=== PATIENT | male | born 1955 | race American Indian/Alaskan Native ===

== ENCOUNTER 2020-02-13 07:32 | Day surgery (SDC) | payer MEDICARE ==
[~2020-02-13 07:32] MED LIST: BUPIVACAINE/PF (0.5%) 5 MG/1 ML 30 ML VIAL INFILTRATI ONE; HEPARIN 10,000 UNITS/10 ML VIAL ONE; LIDOCAINE (1%) 10 MG/1 ML VIAL 20 ML MDV ONE; SODIUM CHLORIDE 0.9% 250ML 0 ML ONE; SODIUM CHLORIDE P/F VIAL 10 ML 0 ML ONE; rifAMPin 600 MG VIAL ONE
[2020-02-13] MEDS ORDERED: ceFAZolin/STERILE WATER 2 GM/20 ML SYRINGE IV NR (08:43)
[2020-02-13 08:45] LABS: Hematocrit 34.7 % (35.5-45.6); Hemoglobin 11.5 gm/dl (11.8-15.2); Mean Corpuscular HGB Conc 33 % (32-34); Mean Corpuscular Volume 83 fl (84-94); Platelet Count 204 K/mm3 (140-440); Red Blood Count 4.17 M/mm3 (3.65-5.03); Red Cell Distribution Width 15.6 % (13.2-15.2)
[2020-02-13] MEDS ORDERED: SODIUM CHLORIDE 0.9% 1000 ML 1,000 ML IV SCH (08:50)
--- NOTE | 2020-02-13 08:56 | Anesthesia Day of Surgery ---
Anesthesia Day of Surgery - Day of Surgery Patient Examined: Yes Patient H&P Reviewed: Yes Patient is NPO: Yes
--- NOTE | 2020-02-13 08:57 | Anesthesia Consultation ---
Anesthesia Consult and Med Hx Date of service: 02/13/20 - Airway Anesthetic Teeth Evaluation: Good ROM Head & Neck: Adequate Mental/Hyoid Distance: Adequate Mallampati Class: Class I Intubation Access Assessment: Good - Pre-Operative Health Status ASA Pre-Surgery Classification: ASA3 Proposed Anesthetic Plan: General (Pt request) - Pulmonary Hx Smoking: Yes Hx Respiratory Symptoms: No (+2FS) Hx Sleep Apnea: (LOW RISK) - Central Nervous System Hx Back Pain: Yes (CHRONIC) Hx Psychiatric Problems: No - Endocrine Hx Renal Disease: Yes Hx End Stage Renal Disease: Yes (Last HD yesterday) Hx Non-Insulin Dependent Diabetes: Yes (No meds?) - Hematic Hx Anemia: Yes - Other Systems Hx Cancer: Yes
[2020-02-13 08:58] LABS: Calcium 8.8 mg/dL (8.4-10.2)
[2020-02-13] MEDS ORDERED: HYDROmorphone 1 MG/1 ML INJ IV PRN (09:00)
[2020-02-13] MEDS ORDERED: ONDANSETRON 4 MG/2 ML INJ IV PRN (09:00)
[2020-02-13] MEDS ORDERED: SODIUM CHLORIDE 0.9% 1000 ML 1,000 ML ONE (09:14)
[2020-02-13] MEDS ORDERED: ONDANSETRON 4 MG/2 ML INJ ONE (11:59)
[2020-02-13] MEDS ORDERED: LIDOCAINE MPF (2%) 20 MG/1 ML VIAL 5 ML ONE (11:59)
[2020-02-13] MEDS ORDERED: HYDROmorphone 1 MG/1 ML INJ ONE (11:59)
[2020-02-13] MEDS ORDERED: propofoL 200 MG/20 ML VIAL IV ONE ×2 (12:00→12:55)
[2020-02-13] MEDS ORDERED: HEPARIN 10,000 UNITS/10 ML VIAL IV ONE (13:29)
[2020-02-13] MEDS ORDERED: SODIUM CHLORIDE 0.9% 500 ML IVPB IV ONE (13:29)
[2020-02-13] MEDS ORDERED: BUPIVACAINE/PF (0.5%) 5 MG/1 ML 30 ML VIAL INFILTRATI ONE ×2 (13:31)
--- NOTE | 2020-02-13 14:23 | Short Stay Summary ---
Short Stay Documentation Date of service: 02/13/20 Narrative H&P: See H&P - History H&P: obtained from office - Allergies and Medications Current Medications: Allergies No Known Allergies Allergy (Unverified 02/11/20 12:27) Home Medications Medication Instructions Recorded Confirmed Last Taken Type Omeprazole 40 mg PO DAILY 01/30/20 02/13/20 02/12/20 08:00 History Percocet 10/325 mg 1 tab PO PRN PRN 01/30/20 02/11/20 Unknown History Active Medications Cefazolin Sodium (Ancef/Sterile Water 2 Gm/20 Ml) 2 gm IV PREOP NR Stop: 02/13/20 23:00 Hydromorphone HCl (Dilaudid) 0.25 mg IV Q10MIN PRN PRN Reason: Pain, Moderate (4-6) Stop: 02/13/20 16:00 Hydromorphone HCl (Dilaudid) 0.5 mg IV Q10MIN PRN PRN Reason: Pain , Severe (7-10) Stop: 02/13/20 16:00 Sodium Chloride (Nacl 0.9% 1000 Ml) 1,000 mls @ 42 mls/hr IV DIRECT CASIMIRO Last Admin: 02/13/20 09:20 Dose: 42 mls/hr Documented by: Ondansetron HCl (Zofran) 4 mg IV ONCE PRN PRN Reason: Nausea And Vomiting Stop: 02/13/20 16:00 - Brief post op/procedure progress note Date of procedure: 02/13/20 Pre-op diagnosis: End-Stage Renal Disease Post-op diagnosis: same Procedure: Creation of Left Brachiocephalic Arteriovenous Fistula Anesthesia: GETA Surgeon: CHRISTOPHER LEDEZMA Estimated blood loss: minimal Pathology: none Condition: stable - Disposition Condition at discharge: Good Disposition: DC-01 TO HOME OR SELFCARE Short Stay Discharge Plan Activity: other (No heavy lifting with left arm for 2 weeks.) Wound: open to air, keep clean and dry, other (Okay to wash the wound with soap and water but do not soak in water for 2 weeks.) Follow up with: CHRISTOPHER LEDEZMA MD [Staff Physician] - 14 Days Prescriptions: HYDROcodone/APAP 7.5-325 [[place] 7.5/325] 1 each PO Q6HR PRN #30 tablet PRN Reason: Pain
--- NOTE | 2020-02-13 14:25 | Operative Report ---
Operative Report Operative Report: Date of procedure: 02/13/2020 Pre-operative diagnosis: End-Stage Renal Disease Post-operative diagnosis: End-Stage Renal Disease Procedure(s): Creation of Left Brachial Artery to Cephalic Vein Arteriovenous Fistula Surgeon: Jareth Jain MD Laborer Stores: None Anesthesia: General Endotracheal Anesthesia EBL: Minimal Counts: Correct Complications: None Condition: Stable Findings: Successful creation of left brachiocephalic arteriovenous fistula with palpable thrill and palpable radial pulse at the completion of the case. Specimen: None Indications: The patient is a 64-year-old male with a history of end-stage renal disease who is currently on hemodialysis through a right internal jugular permacath. He is in need of long-term dialysis access and was found to be a suitable candidate for creation of an arteriovenous fistula. He was given the risk, benefits, and alternative procedures and consented to the procedure. Description of Procedure: The patient was brought to the operating room and laid in supine position. After general endotracheal anesthesia was achieved the patient's arm was prepped and draped in normal sterile fashion. A transverse incision was then made and carried down to the cephalic vein using sharp dissection. The vein was dissecte d out both proximally and distally and suture ligated and divided distally. I then ran a 3 Sandeep proximally in the vein, to ensure patency of the vein. Then flushed the vein with heparinized saline and flow was controlled with a bulldog clamp. I then dissected out the brachial artery through this incision circumferentially both proximal and distal and controlled the artery with vessel loops. I systemically heparinized the patient with 3000 units of heparin IV and used angled DeBakey clamps to control flow through the artery. I created an arteriotomy using an 11 blade and Barnett scissors. I created an end to side anastomosis between the cephalic vein and brachial artery using a 6-0 Prolene in running fashion. Prior to completing the anastomosis I flushed the artery both proximally and distally and then advanced a 3 Sandeep proximally to break the spasm in the artery. I then completed the anastomosis and removed all clamps allowing flow into the fistula which had an adequate thrill. I achieved hemostasis with a combination of Quick Clot and electrocautery. Once hemostasis had been achieved I closed the wound in 2 layers using a 3-0 Vicryl in a running fashion in the deep dermal layer and a 4-0 Monocryl in running fashion in the subcuticular layer. I then dressed the wound with Dermabond. The patient tolerated the procedure well. All sponge, needle, and instrument counts were correct. The patient was taken to the recovery area in stable condition.
[2020-02-13] MEDS: HYDROmorphone 1 MG/1 ML INJ IV PRN ×2 (14:42→15:03)
--- NOTE | 2020-02-13 14:50 | Post Anesthesia Evaluation ---
- Post Anesthesia Evaluation Patient Participated: Yes Airway Patent: Yes Stable Respiratory Function: Yes Nausea/Vomiting: No Temp > 96.8F: Yes Pain Manageable: Yes Adequeate Hydration: Yes Anesthesia Complications: No Block Receding Appropriately: Not Applicable Patient on Ventilator: No
[2020-02-13] MEDS ORDERED: HYDROcodone/ACETAMINOPHEN 7.5-325MG TAB PO NR (15:22)
[2020-02-13 15:43] VITALS: BP 145/96
== END 2020-02-13 17:00 | disposition home or self-care (01) ==
LOC: OR 07:32
PROVIDERS: ATTEND Surgery Vascular Surgery
DX: I12.0 Hypertensive chronic kidney disease with stage 5 chronic kidney disease or end stage renal disease (principal); E11.22 Type 2 diabetes mellitus with diabetic chronic kidney disease; N18.6 End stage renal disease; K21.9 Gastro-esophageal reflux disease without esophagitis; Z85.46 Personal history of malignant neoplasm of prostate; Z98.890 Other specified postprocedural states; Z79.899 Other long term (current) drug therapy; Z87.891 Personal history of nicotine dependence; Z86.2 Personal history of diseases of the blood and blood-forming organs and certain disorders involving the immune mechanism
CPT/HCPCS: 36415; 36821; 80048; 85027; J0690; J1170; J1644; J2405; J2704; J7030; J7040; J3490; J7050

== ENCOUNTER 2021-01-16 06:12 | Day surgery (SDC) | payer MEDICARE ==
[~2021-01-16 06:12] MED LIST changes: -BUPIVACAINE/PF (0.5%) 5 MG/1 ML 30 ML VIAL INFILTRATI ONE; -HEPARIN 10,000 UNITS/10 ML VIAL ONE; -LIDOCAINE (1%) 10 MG/1 ML VIAL 20 ML MDV ONE; -SODIUM CHLORIDE 0.9% 250ML 0 ML ONE; -SODIUM CHLORIDE P/F VIAL 10 ML 0 ML ONE; +ceFAZolin/STERILE WATER 2 GM/20 ML SYRINGE IV NR; -rifAMPin 600 MG VIAL ONE
[2021-01-16] MEDS ORDERED: SODIUM CHLORIDE 0.9% 1000 ML 1,000 ML ONE (06:14)
[2021-01-16] MEDS ORDERED: BACTERIOSTATIC SODIUM CHLORIDE 0.9% 30 ML VIAL INFILTRATI ONE (06:14)
[2021-01-16] MEDS ORDERED: SODIUM CHLORIDE 0.9% 1000 ML 1,000 ML IV SCH (06:30)
[2021-01-16 07:14] LABS: Hematocrit 34.4 % (35.5-45.6); Hemoglobin 11.5 gm/dl (11.8-15.2); Mean Corpuscular HGB Conc 33 % (32-34); Mean Corpuscular Volume 82 fl (84-94); Platelet Count 172 K/mm3 (140-440); Red Cell Distribution Width 16.3 % (13.2-15.2)
[2021-01-16 07:28] LABS: Calcium 9.3 mg/dL (8.4-10.2)
[2021-01-16] MEDS ORDERED: HEPARIN 10,000 UNITS/10 ML VIAL ONE (07:31)
[2021-01-16] MEDS ORDERED: SODIUM CHLORIDE 0.9% 250ML 250 ML ONE (07:32)
[2021-01-16] MEDS ORDERED: SODIUM CHLORIDE 0.9% 500 ML 500 ML ONE (07:32)
[2021-01-16] MEDS ORDERED: rifAMPin 600 MG VIAL ONE (07:33)
[2021-01-16] MEDS ORDERED: BUPIVACAINE/PF (0.5%) 5 MG/1 ML 30 ML VIAL INFILTRATI ONE ×2 (07:33→07:55)
[2021-01-16] MEDS ORDERED: fentaNYL 100 MCG/2 ML INJ ONE (07:54)
[2021-01-16] MEDS ORDERED: MIDAZOLAM 2 MG/2 ML INJ ONE (07:54)
[2021-01-16] MEDS ORDERED: propofoL 200 MG/20 ML VIAL IV ONE ×2 (07:55→09:43)
[2021-01-16] MEDS ORDERED: LIDOCAINE MPF (2%) 20 MG/1 ML VIAL 5 ML ONE (07:55)
[2021-01-16] MEDS ORDERED: HYDROmorphone 1 MG/1 ML INJ IV PRN ×2 (08:08)
[2021-01-16] MEDS ORDERED: ONDANSETRON 4 MG/2 ML INJ IV PRN (08:08)
--- NOTE | 2021-01-16 08:09 | Anesthesia Day of Surgery ---
Anesthesia Day of Surgery - Day of Surgery Patient Examined: Yes Patient H&P Reviewed: Yes Patient is NPO: Yes
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
[2021-01-16] MEDS ORDERED: HEPARIN 10,000 UNITS/10 ML VIAL IR ONE (09:17)
[2021-01-16] MEDS ORDERED: SODIUM CHLORIDE 0.9% 500 ML IVPB IRRIGATION ONE (09:19)
[2021-01-16] MEDS ORDERED: SODIUM CHLORIDE 0.9% 250 ML IVPB IR ONE (09:20)
[2021-01-16] MEDS ORDERED: rifAMPin 600 MG VIAL IV ONE (09:21)
[2021-01-16] MEDS ORDERED: SODIUM CHLORIDE 0.9% IRR 1,500 ML BOTTLE IR ONE (09:22)
--- NOTE | 2021-01-16 10:57 | Short Stay Summary ---
Short Stay Documentation Date of service: 01/16/21 Narrative H&P: See H&P - History H&P: obtained from office - Allergies and Medications Current Medications: Allergies No Known Allergies Allergy (Verified 01/14/21 11:34) Home Medications Medication Instructions Recorded Confirmed Last Taken Type Percocet 10/325 mg 1 tab PO Q6HR PRN 01/30/20 01/14/21 01/15/21 History Calcium Acetate 667 mg PO TIDWM 01/14/21 01/14/21 01/15/21 History amLODIPine [Norvasc] 10 mg PO DAILY 01/14/21 01/16/21 01/16/21 05:00 History hydrALAZINE [Apresoline] 25 mg PO BID 01/14/21 01/14/21 01/15/21 History Active Medications Cefazolin Sodium (Cefazolin/Sterile Water 2 Gm/20 Ml Syringe) 2 gm IV PREOP NR Stop: 01/16/21 23:59 Hydromorphone HCl (Hydromorphone 1 Mg/1 Ml Inj) 0.25 mg IV Q10MIN PRN PRN Reason: Pain, Moderate (4-6) Stop: 01/16/21 20:00 Hydromorphone HCl (Hydromorphone 1 Mg/1 Ml Inj) 0.5 mg IV Q10MIN PRN PRN Reason: Pain , Severe (7-10) Stop: 01/16/21 20:00 Sodium Chloride (Nacl 0.9% 1000 Ml) 1,000 mls @ 42 mls/hr IV DIRECT CASIMIRO Ondansetron HCl (Ondansetron 4 Mg/2 Ml Inj) 4 mg IV ONCE PRN PRN Reason: Nausea And Vomiting Stop: 01/16/21 13:00 - Brief post op/procedure progress note Date of procedure: 01/16/21 Pre-op diagnosis: Complications of Dialysis Access Post-op diagnosis: same Procedure: 1. Excision of Left Arm Arteriovenous Fistula Pseudoaneurysm With Attempted Thrombectomy of Left Arm AV Fistula 2. Creation of Left Brachial Artery to Left Axillary Vein Arteriovenous Graft with 7 mm Bovine Artegraft Anesthesia: MAC, regional Surgeon: CHRISTOPHER LEDEZMA Estimated blood loss: minimal Pathology: none Condition: stable - Disposition Condition at discharge: Good Disposition: 01 HOME / SELF CARE / HOMELESS Short Stay Discharge Plan Activity: other (No Heavy Lifting with Left Arm) Wound: open to air, keep clean and dry, other (Okay to wash the left arm wounds with soap and water but do not soak in water for 2 weeks.) Follow up with: CHRISTOPHER LEDEZMA MD [Staff Physician] - 14 Days Prescriptions: HYDROcodone/APAP 5-325 [[place] 5/325] 1 each PO Q4HR PRN #30 tablet PRN Reason: Pain
--- NOTE | 2021-01-16 11:03 | Operative Report ---
Operative Report Operative Report: Date of procedure: 01/16/2021 Pre-operative diagnosis: Complications of Dialysis Access Post-operative diagnosis: Same Procedure(s): 1. Excision of Left Arm Arteriovenous Fistula Pseudoaneurysm With Attempted Open thrombectomy of Left Arm Arteriovenous fistula with 4 Sandeep 2. Creation of Left Brachial Artery to Axillary Vein AV Graft with 7 mm Bovine Graft Artergraft Surgeon: Jareth Jain MD Sales Representative Sales Manager: None Anesthesia: Regional/MAC EBL: Minimal Counts: Correct Complications: None Condition: Stable Findings: Successful Creation of Left Arm AV Graft with Palpable Thrill and Palpable Radial Pulse at the Completion of the Case. Specimen: None Indication: The patient is a 65-year-old male with a history of end-stage renal disease who was previously on hemodialysis through a left brachiocephalic arteriovenous fistula. His fistula thrombosed and he had a permacath placed. He presents for revision of the fistula possible creation of an arteriovenous graft. He has been given the risk, benefits, and alternative procedures and consented to the procedure. Description of Procedure: Prior to being transported to the operating room the patient had a regional block of the left arm performed. After the block was performed the patient was transported to the operating room and adequately sedated. The patient's left arm was then prepped and draped in normal sterile fashion. A curvilinear incision was created over a pseudoaneurysm near the arterial anastomosis of the fistula. Sharp dissection was used to carry the incision down to the fistula and the arterial inflow of the fistula was dissected circumferentially using sharp dissection. An 11 blade and Barnett scissors were used to create a venotomy and a 4 Sandeep was passed into the arterial inflow of the fistula. Several passes were made and despite retrieving thrombus the arterial flow was sluggish suggesting there was likely a stenosis, of the arterial anastomosis, so the decision was made to abandon the fistula and create an arteriovenous graft. The pseudoaneurysmal portion of the fistula was transected after ligating both the venous outflow and arterial inflow of the graft using 2-0 silk ties. This was then passed off as a specimen. A longitudinal incision was made on the medial aspect of the arm just proximal to the antecubital crease and carried down to the brachial artery using sharp dissection. The brachial artery was dissected out circumferentially both proximally and distally and controlled with vessel loops. A second incision was created in longitudinal fashion on the medial aspect of the arm just distal to the axillary crease and carried down to the axillary vein using sharp dissection. Axillary vein was dissected out circumferentially and controlled with a vessel loop. I then used a Holly-Wick tunneler to tunnel from the brachial artery incision to the axillary vein incision and then pulled an 7 mm bovine through the tunnel. I infused with heparinized saline to ensure that it was not twisted or kinked. I put the brachial artery vessel loops on tension controlling the flow and then created an arteriotomy using an 11 blade and Barnett scissors. I beveled the graft and created an end-to-side anastomosis using 6-0 Prolene running fashion. I clamped the graft just proximal to the anastomosis and then released the vessel loops restoring flow in the brachial artery. I placed quick clot in incision to achieve hemostasis. I cut the proximal end of the graft to the appropriate length and beveled the graft in preparation for a venous anastomosis. I controlled the axillary vein a Satinsky clamp and created a venotomy using an 11 blade and Barnett scissors. I created an end to side anastomosis using a 6-0 Prolene in running fashion. Prior to completing the anastomosis I flushed the graft to ensure there was no thrombus and then completed the anastamosis. I released all clamps allowing flow into the AV graft which had an excellent thrill. I packed the wound with quick clot to achieve hemostasis. I closed all wounds in 2 layers using 3-0 Vicryl in running fashion in the deep dermal layer and 4-0 Monocryl in running fashion the subcuticular layer. I dressed the wounds with Dermabond. The patient tolerated the procedure well all sponge, needle, and instrument counts were correct. The patient was taken to recovery in stable condition.
--- NOTE | 2021-01-16 16:33 | Post Anesthesia Evaluation ---
- Post Anesthesia Evaluation Patient Participated: Yes Airway Patent: Yes Stable Respiratory Function: Yes Nausea/Vomiting: No Temp > 96.8F: Yes Pain Manageable: Yes Adequeate Hydration: Yes Anesthesia Complications: No Block Receding Appropriately: Yes Patient on Ventilator: No
[2021-01-16 19:23] VITALS: BP 113/69
== END 2021-01-16 06:13 | disposition home or self-care (01) ==
LOC: OR 06:12
PROVIDERS: ATTEND Surgery Vascular Surgery
DX: I12.0 Hypertensive chronic kidney disease with stage 5 chronic kidney disease or end stage renal disease (principal); N18.6 End stage renal disease; E11.22 Type 2 diabetes mellitus with diabetic chronic kidney disease; K21.9 Gastro-esophageal reflux disease without esophagitis; G47.30 Sleep apnea, unspecified; Z87.891 Personal history of nicotine dependence; Z79.899 Other long term (current) drug therapy; Z98.890 Other specified postprocedural states; Z20.822 Contact with and (suspected) exposure to COVID-19
CPT/HCPCS: 36415; 36830; 64415; 80048; 85027; 88304; C1757; C1768; J0690; J1644; J2250; J2704; J3010; J3490; J7030; J7040; J7050; U0003; 64450; 88311